=== PATIENT | female | born 1985 | race Caucasian/White ===

== ENCOUNTER 2016-04-07 01:19 | Emergency (ER) | payer MEDICAID ==
[2016-04-07 01:29] VITALS: TEMP 97.5; O2SAT 96
[2016-04-07] MEDS ORDERED: OXYCODONE/APAP 5/325 TAB PO ONE (01:43)
[2016-04-07 01:44] LABS: COLOR COLORLESS; LEUKOCYTE ESTERASE,URINE NEGATIVE (NEGATIVE); NITRITE,URINE NEGATIVE (NEGATIVE)
[2016-04-07] MEDS ORDERED: OXYCODONE/APAP 5/325 TAB ONE ×2 (01:46)
[2016-04-07] MEDS ORDERED: fentaNYL 100 MCG/2 ML INJ IVP ONE (02:13)
[2016-04-07] MEDS ORDERED: LORazepam 2 MG/ML INJ IVP ONE (02:40)
[2016-04-07] MEDS ORDERED: LORazepam 2 MG/ML INJ ONE (02:41)
[2016-04-07 02:43] LABS: % IMMATURE GRANULYOCYTES 0.3 % (0.0-1.1); ABSOLUTE IMMATURE GRANULOCYTES 0.03 10^3/uL (0.00-0.10); ADD DIFF? NO; ADD MORPH? NO; ADD SCAN? NO; ATYPICAL LYMPHOCYTE FLAG 30 (0-99); FRAGMENT RBC FLAG 0 (0-99); HEMATOCRIT 42.7 % (38.0-47.0); HEMOGLOBIN 14.4 g/dL (12.6-16.3); LEFT SHIFT FLG 0 (0-99); LIPEMIA HEMOLYSIS FLAG 80 (0-99); MEAN CELL HEMOGLOBIN 30.6 pg (27.9-34.1); MEAN CELL HEMOGLOBIN CONCENTR. 33.7 g/dL (32.4-36.7); MEAN CELL VOLUME 90.9 fL (81.5-99.8); MEAN PLATELET VOLUME 9.4 fL (8.7-11.7); PLATELET CLUMPS FLAG 0 (0-99); PLATELET COUNT 412 10^3/uL (150-400); RED CELL DISTRIBUTION WIDTH 12.5 % (11.5-15.2)
[2016-04-07 02:56] LABS: ALANINE AMINOTRANSFERASE 28 IU/L (9-52); ALBUMIN 4.2 g/dL (3.5-5.0); ALKALINE PHOSPHATASE 56 IU/L (38-126); ANION GAP 12 mEq/L (8-16); ASPARTATE AMINOTRANSFERASE 24 IU/L (14-46); BILIRUBIN,TOTAL 0.4 mg/dL (0.1-1.4); CALCIUM 9.2 mg/dL (8.5-10.4); CARBON DIOXIDE 24 mEq/l (22-31); CHLORIDE 112 mEq/L (97-110); CREATININE 0.7 mg/dL (0.6-1.0); GLOMERULAR FILTRATION RATE > 60; GLUCOSE 91 mg/dL (70-100); POTASSIUM 4.1 mEq/L (3.5-5.2); SODIUM 148 mEq/L (134-144); TOTAL PROTEIN 7.4 g/dL (6.3-8.2)
--- NOTE | 2016-04-07 03:30 | EDPHY ---
H & P Stated Complaint: dysuria that began two nights ago Time Seen by Provider: 04/07/16 02:03 HPI/ROS: HPI The patient presents with dysuria which has been present for the last 1 day which began while she was at work as a [employer]ER. She says she is having a pressure like sensation each time she voids with minimal urine output. She has had multiple prior similar episodes and had ciprofloxacin at home. She took a dose of this with some improvement of her symptoms. She denies any flank pain or fever. Two months ago, she relocated here from [place]. She says she has a right ureteral stent in place because of a kink in her ureter and kidney stones. REVIEW OF SYSTEMS Constitutional: No fever, no chills. Eyes: No discharge. ENT: No sore throat. Cardiovascular: No chest pain, no palpitations. Respiratory: No cough, no shortness of breath. Gastrointestinal: No abdominal pain, no vomiting. Genitourinary: No hematuria. Musculoskeletal: No back pain. Skin: No rashes. Neurological: No headache. PMHx: Right ureteral stent Soc Hx: Recently relocated from [place], works as a [employer] TEACHER PHYSICAL General Appearance: Alert, uncomfortable and anxious, pacing about the emergency room Eyes: Pupils equal and round no pallor or injection ENT, Mouth: Mucous membranes moist Respiratory: There are no retractions, lungs are clear to auscultation Cardiovascular: Regular rate and rhythm Gastrointestinal: Abdomen is soft and non-tender, no masses, bowel sounds normal Neurological: A&O, moves all extremities Skin: Warm and dry, no rashes Musculoskeletal: Neck is supple non tender Extremities: symmetrical, full range of motion Psychiatric: Patient is oriented X 3, there is no agitation Source: Patient Exam Limitations: No limitations - Personal History LMP (Females 10-55): 1-7 Days Ago Current Tetanus/Diphtheria Vaccine: No Current Tetanus Diphtheria and Acellular Pertussis (TDAP): No - Medical/Surgical History Hx Asthma: No Hx Chronic Respiratory Disease: No Hx Diabetes: No Hx Cardiac Disease: No Hx Renal Disease: No Hx Cirrhosis: No Hx Alcoholism: No Hx HIV/AIDS: No Hx Splenectomy or Spleen Trauma: No Other PMH: right ureter stent, depression - Social History Smoking Status: Heavy smoker Constitutional: Initial Vital Signs Temperature (C) 36.4 C 04/07/16 01:24 Heart Rate 110 H 04/07/16 01:24 Respiratory Rate 20 04/07/16 01:24 Blood Pressure 123/102 H 04/07/16 01:24 O2 Sat (%) 96 04/07/16 01:24 O2 Delivery Mode Room Air Allergies/Adverse Reactions: Sulfa (Sulfonamide Antibiotics) Allergy (Verified 04/07/16 01:24) Home Medications: Medication Instructions Recorded Ciprofloxacin [Cipro] 500 mg PO BID #14 tab 04/07/16 Effexor 04/07/16 Medical Decision Making - Diagnostics Imaging: CT a/p with IV contrast: Demonstrates no evidence of right ureteral stent or obstructive uropathy, 4 mm nonobstructive his left nephrolith, moderate constipation, appendix is normal, discussed with Dr. Garza of Radiology. Differential Diagnosis: This is a 30-year-old female with history of frequent UTIs and right ureteral stent in place for ureterolithiasis possibly who presents from home with 1 day of dysuria. She has a recurrent history of this in normally improves with antibiotics. She took a dose of ciprofloxacin prior to arrival. On examination today, she is slightly tachycardic and very anxious, pacing throughout the emergency room, she does not have any suprapubic tenderness or flank tenderness. Differential diagnosis includes cystitis, pyelonephritis, nephrolithiasis. In the emergency room, UA was obtained and was unremarkable, showing no blood or signs of infection. Basic labs were also normal. A CT scan was performed which actually demonstrated no stent of her ureter which was surprising to me. She will be discharged with a course of ciprofloxacin, though her UA is negative , she does have symptoms suggestive of a urinary tract infection and we can await culture results to guide any further treatment. I have also referred her to Urology per her request and given her frequent UTIs with history of ureteral stent I feel this is appropriate. - Data Points Laboratory Results: Laboratory Results 04/07/16 02:10 04/07/16 02:10 04/07/16 04/07/16 02:10 01:30 WBC 11.08 H 10^3/uL (3.80-9.50) RBC 4.70 10^6/uL (4.18-5.33) Hgb 14.4 g/dL (12.6-16.3) Hct 42.7 % (38.0-47.0) MCV 90.9 fL (81.5-99.8) MCH 30.6 pg (27.9-34.1) MCHC 33.7 g/dL (32.4-36.7) RDW 12.5 % (11.5-15.2) Plt Count 412 H 10^3/uL (150-400) MPV 9.4 fL (8.7-11.7) Neut % (Auto) 44.9 % (39.3-74.2) Lymph % (Auto) 45.6 H % (15.0-45.0) [place] % (Auto) 6.5 % (4.5-13.0) Eos % (Auto) 2.0 % (0.6-7.6) Baso % (Auto) 0.7 % (0.3-1.7) Nucleat RBC Rel Count 0.0 % (0.0-0.2) Absolute Neuts (auto) 4.98 10^3/uL (1.70-6.50) Absolute Lymphs (auto) 5.05 H 10^3/uL (1.00-3.00) Absolute Monos (auto) 0.72 10^3/uL (0.30-0.80) Absolute Eos (auto) 0.22 10^3/uL (0.03-0.40) Absolute Basos (auto) 0.08 10^3/uL (0.02-0.10) Absolute Nucleated RBC 0.00 10^3/uL (0-0.01) Immature Gran % 0.3 % (0.0-1.1) Immature Gran # 0.03 10^3/uL (0.00-0.10) Sodium 148 H mEq/L (134-144) Potassium 4.1 mEq/L (3.5-5.2) Chloride 112 H mEq/L (97-110) Carbon Dioxide 24 mEq/l (22-31) Anion Gap 12 mEq/L (8-16) BUN 16 mg/dL (7-23) Creatinine 0.7 mg/dL (0.6-1.0) Estimated GFR > 60 Glucose 91 mg/dL (70-100) Calcium 9.2 mg/dL (8.5-10.4) Total Bilirubin 0.4 mg/dL (0.1-1.4) AST 24 IU/L (14-46) ALT 28 IU/L (9-52) Alkaline Phosphatase 56 IU/L (38-126) Total Protein 7.4 g/dL (6.3-8.2) Albumin 4.2 g/dL (3.5-5.0) Urine Color COLORLESS Urine Appearance CLEAR Urine pH 6.0 (5.0-7.5) Ur Specific [place] 1.001 L (1.002-1.030) Urine Protein NEGATIVE (NEGATIVE) Urine Ketones NEGATIVE (NEGATIVE) Urine Blood NEGATIVE (NEGATIVE) Urine Nitrate NEGATIVE (NEGATIVE) Urine Bilirubin NEGATIVE (NEGATIVE) Urine Urobilinogen NEGATIVE EU (0.2-1.0) Ur Leukocyte Esterase NEGATIVE (NEGATIVE) Urine Glucose NEGATIVE (NEGATIVE) Medications Given: Discontinued Medications Fentanyl (Sublimaze) 50 mcg IVP EDNOW ONE Stop: 04/07/16 02:14 Last Admin: 04/07/16 02:15 Dose: 50 mcg Lorazepam (Ativan Injection) 1 mg IVP EDNOW ONE Stop: 04/07/16 02:41 Last Admin: 04/07/16 02:45 Dose: 1 mg Oxycodone/Acetaminophen (Percocet 5/325) 1 - 2 tab PO EDNOW ONE Stop: 04/07/16 01:44 Last Admin: 04/07/16 01:56 Dose: 2 tab Departure - Departure Disposition: Home, Routine, Self-Care Clinical Impression: Dysuria Condition: Good Instructions: Dysuria (ED) Additional Instructions: We have referred you to a urologist for further care. You should return to the emergency room if your worse in any way. Please take a course of antibiotics. Referrals: Oliver Jensen MD [Medical Doctor] - As per Instructions Prescriptions: Ciprofloxacin [Cipro] 500 mg PO BID #14 tab
[2016-04-07 03:41] VITALS: BP 138/77; PULSE 80; RESP 16
--- NOTE | 2016-04-07 10:07 | CT ---
Unenhanced CT Scan of the Abdomen and Pelvis (Renal Stone Protocol) Clinical History: 30-year-old female who presents to the ED with some right flank discomfort, and she indicates that she has a ureteral stent. Her urinalysis is negative. Evaluate for occult stones. She denies any prior abdominal surgery otherwise. Technique: A multidetector unenhanced helical CT scan was obtained from the lung bases inferiorly through the proximal femora, with images reformatted in 5.00 and 1.50 mm increments, and reviewed at a variety of window and level settings. Parasagittal and paracoronal reconstructed images were also reviewed on the workstation. The DFOV is 35.5 cm. A dose reduction protocol was used. Comparison Study: None available. Findings: Unenhanced CT Scan of the Abdomen: The lung bases are clear. The visualized cardiac chambers and pericardium are unremarkable. There are no hepatic, pancreatic, splenic, adrenal, right renal, or ureteral calculi. There is a 2 x 4 x 4 mm nonobstructive nephrolith in the lower pole of the left kidney. There is no evidence of right nephrolithiasis. There is a paucity of renal sinus fat on the right side, but no convincing evidence of hydronephrosis. There is no perinephric fluid. There is a moderate amount of constipation. The retrocecal appendix is identified on series 4, images 135-177, and measures 5.0-5.9 mm in diameter. The abdominal aorta and IVC are normal in caliber. The osseous structures are age-appropriate. Unenhanced CT Scan of the Pelvis: The urinary bladder is partially distended. The uterus is seen left of midline. There is a phlebolith in the caudal left hemipelvis. There is no evidence of distal ureterolithiasis or urinary bladder calculi. There is no free fluid. Constipation/obstipation is present. The osseous structures are age-appropriate. Impression: 1. There is no evidence of a right ureteral stent, or right-sided obstructive uropathy. 2. There is a 4 mm nonobstructive lower pole left nephrolith. 3. Pronounced constipation. 4. Normal appearance to retrocecal appendix. I provided a preliminary interpretation to Dr. Sadia Abbasi at 3:20 a.m. on April 07, 2016, regarding the above findings. My final interpretation is concordant with my initial impression. Attention: This CT examination is specifically designed to evaluate patients who are clinically suspected of having acute obstructive uropathy. This examination does not use radiographic contrast, and as such, provides only a limited evaluation of the abdomen, pelvis, and retroperitoneum. If there is further clinical suspicion for pathologic conditions other than obstructive uropathy, a complete CT evaluation of the abdomen and pelvis utilizing intravenous, oral, and rectal contrast should be considered [facility]
== END 2016-04-07 03:40 | disposition home or self-care (01) ==
DX: R30.0 Dysuria (principal); F17.200 Nicotine dependence, unspecified, uncomplicated
CPT/HCPCS: 96374; J3010

== ENCOUNTER 2017-06-08 18:11 | Emergency (ER) | payer MEDICAID ==
[2017-06-08] MEDS ORDERED: LORazepam 1 MG TAB PO ONE (18:56)
[2017-06-08] MEDS ORDERED: CHLORDIAZEPOXIDE 25MG PREPK#6 BTL TAKEHOME ONE (18:56)
--- NOTE | 2017-06-08 19:00 | EDPHY ---
H & P Stated Complaint: withdrawing from heroin Time Seen by Provider: 06/08/17 18:43 HPI/ROS: CHIEF COMPLAINT: Heroin withdrawal HISTORY OF PRESENT ILLNESS: Patient is a 32-year-old female who states that she is withdrawing from heroin. She states that she has severe leg cramps. She is tearful. She went to the [facility] who sent her here for a Librium prepack. She denies nausea vomiting. No fevers. No trauma. REVIEW OF SYSTEMS: Constitutional: denies: chills, fever, recent illness, recent injury EENTM: denies: blurred vision, double vision, nose congestion Respiratory: denies: cough, shortness of breath Cardiac: denies: chest pain, irregular heart rate, lightheadedness, palpitations Gastrointestinal/Abdominal: denies: abdominal pain, diarrhea, nausea, vomiting, blood streaked stools Genitourinary: denies: dysuria, frequency, hematuria, pain Musculoskeletal: See HPI Skin: denies: lesions, rash, jaundice, bruising Neurological: denies: headache, numbness, paresthesia, tingling, dizziness, weakness Hematologic/Lymphatic: denies: blood clots, easy bleeding, easy bruising Immunologic/allergic: denies: HIV/AIDS, transplant EXAM: GENERAL: Tearful, moderate distress HEAD: Atraumatic, normocephalic. EYES: Pupils equal round and reactive to light, extraocular movements intact, sclera anicteric, conjunctiva are normal. ENT: TMs normal, nares patent, oropharynx clear without exudates. Moist mucous membranes. NECK: Normal range of motion, supple without lymphadenopathy or JVD. LUNGS: Breath sounds clear to auscultation bilaterally and equal. No wheezes rales or rhonchi. HEART: Regular rate and rhythm without murmurs, rubs or gallops. ABDOMEN: Soft, nontender, normoactive bowel sounds. No guarding, no rebound. No masses appreciated. BACK: No CVA tenderness, no spinal tenderness, step-offs or deformities EXTREMITIES: Leg pain, Normal range of motion, no pitting or edema. No clubbing or cyanosis. NEUROLOGICAL: Cranial nerves II through XII grossly intact. Normal speech, normal gait. 5/5 strength, normal movement in all extremities, normal sensation PSYCH: Normal mood, normal affect. SKIN: Warm, dry, normal turgor, no visible rashes or lesions. Source: Patient - Personal History LMP (Females 10-55): 1-7 Days Ago Current Tetanus/Diphtheria Vaccine: Yes - Medical/Surgical History Hx Asthma: No Hx Chronic Respiratory Disease: No Hx Diabetes: No Hx Cardiac Disease: No Hx Renal Disease: No Hx Cirrhosis: No Hx Alcoholism: No Hx HIV/AIDS: No Hx Splenectomy or Spleen Trauma: No Other PMH: right ureter stent, depression - Family History Significant Family History: No pertinent family hx - Social History Smoking Status: Heavy smoker Alcohol Use: Occasionally Drug Use: Heroin Constitutional: Initial Vital Signs Temperature (C) 36.8 C 06/08/17 18:17 Heart Rate 102 H 06/08/17 18:17 Respiratory Rate 19 06/08/17 18:17 Blood Pressure 112/86 H 06/08/17 18:17 O2 Sat (%) 98 06/08/17 18:17 O2 Delivery Mode Room Air Allergies/Adverse Reactions: Sulfa (Sulfonamide Antibiotics) Allergy (Verified 06/08/17 18:17) Home Medications: Medication Instructions Recorded Librium 10 mg (RX) 06/08/17 Medical Decision Making ED Course/Re-evaluation: I will treat the patient with clonidine and Ativan and sent her back to the [facility] was requested with debris prepack. She is happy with this plan. She declines further workup or testing. 7:20 p.m. the patient is doing much better. She is standing the door and is eager to go back to the [facility]. Differential Diagnosis: Partial list of the Differential diagnosis considered include but were not limited to; opiate withdrawal, alcohol withdrawal, anxiety and although unlikely based on the history and physical exam, I also considered head injury, infection. I discussed these differential diagnoses and the plan with the patient as well as the usual and expected course. The patient understands that the diagnosis is provisional and that in medicine we are not always correct and that further workup is often warranted. Usual and customary warnings were given. All of the patient's questions were answered. The patient was instructed to return to the emergency department should the symptoms at all worsen or return, otherwise to followup with the physician as we discussed. - Data Points Medications Given: Discontinued Medications Chlordiazepoxide (Librium 25 Mg Prepack#6) 1 btl TAKEHOME EDNOW ONE Stop: 06/08/17 18:57 Last Admin: 06/08/17 19:01 Dose: 1 btl Clonidine (Catapres) 0.1 mg PO EDNOW ONE Stop: 06/08/17 18:50 Last Admin: 06/08/17 19:01 Dose: 0.1 mg Lorazepam (Ativan) 2 mg PO EDNOW ONE Stop: 06/08/17 18:57 Last Admin: 06/08/17 19:01 Dose: 2 mg Departure - Departure Disposition: Home, Routine, Self-Care Clinical Impression: Opiate withdrawal Condition: Fair Instructions: Chlordiazepoxide (By mouth), Narcotic Abuse (ED) Referrals: [facility],. [Clinic] - As per Instructions
[2017-06-08 19:26] VITALS: BP 99/66
== END 2017-06-08 19:28 | disposition home or self-care (01) ==
DX: F11.23 Opioid dependence with withdrawal (principal); F17.200 Nicotine dependence, unspecified, uncomplicated

== ENCOUNTER 2018-01-27 04:56 | Emergency (ER) | payer MEDICAID ==
[2018-01-27] MEDS ORDERED: NS 2,000 ML IV ONE (05:03)
[2018-01-27] MEDS ORDERED: LORazepam 2 MG/ML INJ IVP ONE ×2 (05:03→05:54)
--- NOTE | 2018-01-27 05:05 | EDPHY ---
H & P Time Seen by Provider: 01/27/18 05:04 HPI/ROS: HPI CHIEF COMPLAINT: Anxiety, panic attack, methamphetamine abuse. HISTORY OF PRESENT ILLNESS: 32-year-old female, history of chronic pain and chronic opiate dependency, takes Suboxone, recently has been doing methamphetamine. She reports she smoked methamphetamine throughout the day today. This evening she feels very anxious and panicky. She called 911 for anxiety. She was given 2 mg of Versed in route. She arrives to the emergency room anxious, tachycardic in the 120s. She admits to large amount of methamphetamine tonight. Denies any chest pain or shortness of breath. Denies fever vomiting. Denies any other complaints. Does state she feels anxious. Past Medical History: Polysubstance abuse. Opiate dependency on Suboxone. Past Surgical History: No recent surgery Social History: Polysubstance abuse. Family History: Noncontributory ROS REVIEW OF SYSTEMS: 10 Systems were reviewed and negative with the exception of the elements mentioned in the history of present illness. Exam Constitutional triage nursing summary reviewed, vital signs reviewed, awake/ alert. Anxious Eyes normal conjunctivae and sclera, EOMI, PERRLA. HENT normal inspection, atraumatic, moist mucus membranes, no epistaxis, neck supple/ no meningismus, no raccoon eyes. Respiratory clear to auscultation bilaterally, normal breath sounds, no respiratory distress, no wheezing. Cardiovascular tachycardic, regular rhythm, no murmur, no edema, distal pulses normal. Gastrointestinal soft, non-tender, no rebound, no guarding, normal bowel sounds, no distension, no pulsatile mass. Genitourinary no CVA tenderness. Musculoskeletal no midline vertebral tenderness, full range of motion, no calf swelling, no tenderness of extremities, no meningismus, good pulses, neurovascularly intact. Skin pink, warm, & dry, no rash, skin atraumatic. Neurologic awake, alert and oriented x 3, AAOx3, moves all 4 extremities equally, motor intact, sensory intact, CN II-XII intact, normal cerebellar, normal vision, normal speech. Psychiatric anxious Heme/Lymph/Immune no lymphadenopathy. Differential Diagnosis: Includes but is not limited to in a particular order polysubstance abuse, methamphetamine abuse, anxiety Medical Decision Making: Plan for this patient IV establishment blood draw, IV fluid bolus IV Ativan 1 mg for anxiety. Re-evaluate. Re-evaluation: 0642: Patient re-evaluated doing much better after IV fluids, 2 mg IV Ativan and 2 L of fluid. Heart rate down to 110. She feels well. Anxiety is under control. Drug screen positive for methamphetamine. Had a long discussion about meth use and how dangerous it is. She understands. She is medically cleared for long-term. Source: Patient, Police, EMS - Medical/Surgical History Hx Asthma: No Hx Chronic Respiratory Disease: No Hx Diabetes: No Hx Cardiac Disease: No Hx Renal Disease: No Hx Cirrhosis: No Hx Alcoholism: No Hx HIV/AIDS: No Hx Splenectomy or Spleen Trauma: No Other PMH: right ureter stent, depression - Social History Smoking Status: Heavy smoker Constitutional: Initial Vital Signs Temperature (C) 36.7 C 01/27/18 05:05 Heart Rate 110 H 01/27/18 05:05 Respiratory Rate 18 01/27/18 05:05 Blood Pressure 99/67 L 01/27/18 05:05 O2 Sat (%) 99 01/27/18 05:05 O2 Delivery Mode Room Air Allergies/Adverse Reactions: Sulfa (Sulfonamide Antibiotics) Allergy (Verified 06/08/17 18:17) Home Medications: Medication Instructions Recorded Librium 10 mg (RX) 06/08/17 Medical Decision Making - Data Points Laboratory Results: Laboratory Results 01/27/18 05:00 01/27/18 05:00 01/27/18 01/27/18 01/27/18 05:15 05:00 05:00 WBC 12.89 10^3/uL H 10^3/uL (3.80-9.50) RBC 5.01 10^6/uL 10^6/uL (4.18-5.33) Hgb 14.8 g/dL g/dL (12.6-16.3) Hct 43.9 % % (38.0-47.0) MCV 87.6 fL fL (81.5-99.8) MCH 29.5 pg pg (27.9-34.1) MCHC 33.7 g/dL g/dL (32.4-36.7) RDW 13.0 % % (11.5-15.2) Plt Count 444 10^3/uL H 10^3/uL (150-400) MPV 9.3 fL fL (8.7-11.7) Neut % (Auto) 72.7 % % (39.3-74.2) Lymph % (Auto) 20.8 % % (15.0-45.0) [place] % (Auto) 5.7 % % (4.5-13.0) Eos % (Auto) 0.1 % L % (0.6-7.6) Baso % (Auto) 0.3 % % (0.3-1.7) Nucleat RBC Rel Count 0.0 % % (0.0-0.2) Absolute Neuts (auto) 9.38 10^3/uL H 10^3/uL (1.70-6.50) Absolute Lymphs (auto) 2.68 10^3/uL 10^3/uL (1.00-3.00) Absolute Monos (auto) 0.73 10^3/uL 10^3/uL (0.30-0.80) Absolute Eos (auto) 0.01 10^3/uL L 10^3/uL (0.03-0.40) Absolute Basos (auto) 0.04 10^3/uL 10^3/uL (0.02-0.10) Absolute Nucleated RBC 0.00 10^3/uL 10^3/uL (0-0.01) Immature Gran % 0.4 % % (0.0-1.1) Immature Gran # 0.05 10^3/uL 10^3/uL (0.00-0.10) Sodium 142 mEq/L mEq/L (135-145) Potassium 4.1 mEq/L mEq/L (3.3-5.0) Chloride 104 mEq/L mEq/L (97-110) Carbon Dioxide 25 mEq/l mEq/l (22-31) Anion Gap 13 mEq/L mEq/L (6-14) BUN 12 mg/dL mg/dL (7-23) Creatinine 0.7 mg/dL mg/dL (0.6-1.0) Estimated GFR > 60 Glucose 76 mg/dL mg/dL (70-100) Calcium 10.1 mg/dL mg/dL (8.5-10.4) Urine Opiates Screen NEGATIVE (NEGATIVE) Urine Barbiturates NEGATIVE (NEGATIVE) Ur Phencyclidine Scrn NEGATIVE (NEGATIVE) Ur Amphetamine Screen NON-NEGATIVE H (NEGATIVE) U Benzodiazepines Scrn NON-NEGATIVE H (NEGATIVE) Urine Cocaine Screen NEGATIVE (NEGATIVE) U Marijuana (THC) Screen NON-NEGATIVE H (NEGATIVE) Medications Given: Discontinued Medications Acetaminophen (Tylenol) 1,000 mg PO EDNOW ONE Stop: 01/27/18 06:05 Last Admin: 01/27/18 06:04 Dose: 1,000 mg Sodium Chloride (Ns) 2,000 mls @ 0 mls/hr IV ONCE ONE PRN Reason: Wide Open Stop: 01/27/18 05:04 Last Admin: 01/27/18 05:15 Dose: 2,000 mls Lorazepam (Ativan Injection) 1 mg IVP EDNOW ONE Stop: 01/27/18 05:04 Last Admin: 01/27/18 05:15 Dose: 1 mg Lorazepam (Ativan Injection) 1 mg IVP EDNOW ONE Stop: 01/27/18 05:55 Last Admin: 01/27/18 05:59 Dose: 1 mg Departure - Departure Disposition: Home, Routine, Self-Care Clinical Impression: Methamphetamine abuse, Anxiety Condition: Good Instructions: Methamphetamine Abuse (ED), Anxiety (ED) Additional Instructions: 1. Stop doing methamphetamine it is very dangerous. 2. Medically cleared for long-term. Referrals: NONE *PRIMARY CARE P,. [Primary Care Provider] - As per Instructions
[2018-01-27 05:14] LABS: PLATELET COUNT 444 10^3/uL (150-400)
[2018-01-27] MEDS ORDERED: LORazepam 2 MG/ML INJ ONE (05:55)
[2018-01-27] MEDS ORDERED: ACETAMINOPHEN 500 MG TAB ONE (06:03)
[2018-01-27] MEDS ORDERED: ACETAMINOPHEN 500 MG TAB PO ONE (06:04)
[2018-01-27 06:43] VITALS: BP 106/76
== END 2018-01-27 06:55 | disposition home or self-care (01) ==
LOC: EDUNIT#
DX: F15.10 Other stimulant abuse, uncomplicated (principal); F41.0 Panic disorder [episodic paroxysmal anxiety]
CPT/HCPCS: 80305; 96374; J2060

== ENCOUNTER 2018-03-15 15:36 | Emergency (ER) | payer MEDICAID ==
[2018-03-15] MEDS ORDERED: NS 1,000 ML IV ONE (16:03)
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
[2018-03-15 16:50] LABS: PLATELET COUNT 373 10^3/uL (150-400)
[2018-03-15] MEDS ORDERED: MAGNESIUM CITRATE 300 ML BOTTLE PO ONE (18:08)
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
[2018-03-15 18:27] VITALS: BP 105/60
== END 2018-03-15 18:27 | disposition home or self-care (01) ==
DX: O00.01 Abdominal pregnancy with intrauterine pregnancy (principal); K59.00 Constipation, unspecified; F19.10 Other psychoactive substance abuse, uncomplicated; F32.9 Major depressive disorder, single episode, unspecified; Z3A.11 11 weeks gestation of pregnancy
CPT/HCPCS: 80305